=== PATIENT | male | born 1965 | race American Indian/Alaskan Native ===

== ENCOUNTER 2019-12-27 15:39 | Emergency (ER) | payer MEDICAID ==
[2019-12-27 15:59] VITALS: BP 129/70
--- NOTE | 2019-12-27 22:52 | Emergency Department Report ---
Chief Complaint: Urogenital-Male Stated Complaint: BURNING Time Seen by Provider: 12/27/19 22:51 - HPI History of Present Illness: 54-year-old male patient presents with complaints of exposure to STD today. Patient states his told him that she was positive for chlamydia and he is wanting to get treatment today. He denies any dysuria, hematuria, penile discharge penile pain/swelling, testicular pain/swelling, fever/chills/sweats, joint pain/swelling, or abdominal pain. - Exam Vital Signs: Vital Signs 12/27/19 15:54 Temperature 98 F Pulse Rate 69 Respiratory 18 Rate Blood Pressure 129/70 O2 Sat by Pulse 98 Oximetry MSE screening note: Focused history and physical exam performed. Due to findings the following was ordered: ED Medical Decision Making - Medical Decision Making Patient here for STD testing and treatment. He denies any symptoms. His vitals are normal. He is well-appearing. Patient presents with a non-medical emergency. Patient informed to seek testing and treatment at the health department or in urgent care. Information for the health department was provided to the patient. Patient also provided with a primary care provider. He is stable for discharge home. Strict return precautions were discussed in great detail with patient who verbalized understanding. ED Disposition for MSE Clinical Impression: STD exposure Disposition: Z-07 MED SCREENING EXAM-LEFT Is pt being admited?: No Condition: Stable Additional Instructions: Please follow-up with the health department for STD testing and treatment. Referrals: [facility] [Provider Group] - 3-5 Days ED Physical Exam - General Limitations: No Limitations General appearance: alert, in no apparent distress - Head Head exam: Present: atraumatic, normocephalic - Eye Eye exam: Present: normal appearance. Absent: scleral icterus - Respiratory Respiratory exam: Absent: respiratory distress - Cardiovascular Cardiovascular Exam: Present: regular rate - GI/Abdominal GI/Abdominal exam: Present: soft. Absent: distended, tenderness, guarding, rebound, rigid - Neurological Exam Neurological exam: Present: alert, oriented X3 - Psychiatric Psychiatric exam: Present: normal affect, normal mood - Skin Skin exam: Present: warm, dry, intact, normal color. Absent: rash, cyanosis, diaphoretic
== END 2019-12-27 23:30 | disposition left against medical advice (07) ==
LOC: ED 15:39
DX: K14.6 Glossodynia (principal); Z53.21 Procedure and treatment not carried out due to patient leaving prior to being seen by health care provider